=== PATIENT | female | born 1965 | race American Indian/Alaskan Native ===

== ENCOUNTER 2017-06-09 17:08 | Emergency (ER) | payer BC, OTHER ==
[2017-06-09 18:16] VITALS: BP 168/93
[2017-06-09] MEDS ORDERED: TYLENOL ONE (18:36)
[2017-06-09] MEDS ORDERED: TYLENOL PO ONE (18:41)
--- NOTE | 2017-06-09 21:11 | Emergency Department Report ---
Chief Complaint: Shoulder Injury Stated Complaint: SHOULDER PAIN Time Seen by Provider: 06/09/17 18:43 - HPI History of Present Illness: The patient is a 51-year-old female presents for evaluation of shoulder pain. The patient reports right shoulder pain for the past one week, mild in severity , achy in quality, exacerbated with movement of the right arm at the shoulder joint. 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 She denies blunt trauma to the shoulder, neck pain or stiffness, paresthesias, motor deficit, chest pain, dyspnea, abdominal pain, or pain elsewhere. - Exam Vital Signs: Vital Signs 06/09/17 06/09/17 18:12 18:42 Temperature 98.1 F Pulse Rate 103 H Respiratory 20 18 Rate Blood Pressure 168/93 O2 Sat by Pulse 97 Oximetry MSE screening note: Focused history and physical exam performed. Due to findings the following was ordered: ED Disposition for MSE Condition: Stable Referrals: PRIMARY CARE, [Primary Care Provider] - 3-5 Days
--- NOTE | 2017-06-09 21:26 | XRay Report ---
FINAL REPORT EXAM: XR SHOULDER 2+V RT HISTORY: Right shoulder injury TECHNIQUE: Three views right shoulder Comparison: None FINDINGS: There is mild osteopenia. There is no fracture or dislocation. Glenohumeral space is preserved. The acromion and acromioclavicular joint are unremarkable. The scapula is grossly intact. Imaged right lung apex is clear. Humeral head is within normal limits. IMPRESSION: No acute fracture or dislocation right shoulder girdle.
--- NOTE | 2017-06-09 21:59 | Emergency Department Report ---
Upper Extremity - HPI Chief Complaint: Shoulder Injury Stated Complaint: SHOULDER PAIN Time Seen by Provider: 06/09/17 18:43 Occurred When: >5 Days Mechanism: Other (lifting a patient) Severity: severe Symptoms: Yes Pain with Movement, No Deformity, No Limited Range of Movement, No Numbness, No Weakness, No Swelling, No Bruising/Ecchymosis, No Laceration or Abrasion Other History: The patient is a 51-year-old female presents for evaluation of shoulder pain. The patient reports right shoulder pain for the past one week, mild in severity, achy in quality, exacerbated with movement of the right arm at the shoulder joint. 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 She denies blunt trauma to the shoulder, neck pain or stiffness, paresthesias, motor deficit, chest pain, dyspnea, abdominal pain, or pain elsewhere. ED Review of Systems ROS: Stated complaint: SHOULDER PAIN Other details as noted in HPI Constitutional: denies: chills, fever Eyes: denies: eye pain, eye discharge, vision change ENT: denies: ear pain, throat pain Respiratory: denies: cough, shortness of breath, wheezing Cardiovascular: denies: chest pain, palpitations Endocrine: no symptoms reported Gastrointestinal: denies: abdominal pain, nausea, diarrhea Genitourinary: denies: urgency, dysuria, discharge Musculoskeletal: arthralgia (right shoulder). denies: back pain, joint swelling Skin: denies: rash, lesions Neurological: denies: headache, weakness, paresthesias Psychiatric: denies: anxiety, depression Hematological/Lymphatic: denies: easy bleeding, easy bruising ED Past Medical Hx - Past Medical History Previous Medical History?: Yes Hx Congestive Heart Failure: No Hx Diabetes: No Hx Asthma: Yes Hx COPD: No - Surgical History Past Surgical History?: Yes Additional Surgical History: x 2, Hysterectomy - Social History Smoking Status: Never Smoker Substance Use Type: Alcohol, Prescribed - Medications Home Medications: Home Medications Medication Instructions Recorded Confirmed Last Taken Type Biotin 1 tab PO DAILY 12/07/12 12/07/12 12/06/12 History Iron Fum,Ps/Folic/Bcomp,C No.9 1 tab PO DAILY 12/07/12 12/07/12 12/06/12 History [Integra Plus Capsule] Multivitamin [Multi-Vitamin Daily] 1 tab PO DAILY 12/07/12 12/07/12 12/06/12 07: 00 History Docusate Sodium [Colace] 100 mg PO BID PRN #60 capsule 12/09/12 Unknown Rx Ferrous Sulfate [Feosol 325 MG tab] 325 mg PO QDAY #30 tablet 12/09/12 Unknown Rx Oxycodone HCl/Acetaminophen 1 each PO Q6HR PRN #30 tablet 12/09/12 Unknown Rx [Percocet 10-325 mg] Ibuprofen [Motrin 800 MG tab] 800 mg PO TID PRN #30 tablet 06/09/17 Unknown Rx Upper Extremity Exam - Exam General: Vital signs noted. No distress. Alert and acting appropriately. Shoulder Exam: Yes Shoulder Tenderness, Yes Clavicle Tenderness, Yes AC Joint Tenderness, No Normal Range of Motion in Shoulder (not able to elevate straight up or abduction ), No Shoulder Deformity Arm Exam: No Arm/Humerus Tenderness, No Arm Deformity Elbow: Yes Normal Range of Motion in Elbow, No Elbow Tenderness, No Elbow Deformity Forearm: No Forearm Tenderness, No Forearm Deformity, No Pain with Pronation, No Pain with Supination Wrist: No Wrist Tenderness, No Normal ROM in Wrist, No Wrist Deformity, No Snuffbox Tenderness, No Pain with Axial Thumb Compression Hand: No Hand Tenderness, No Hand Deformity, No Digit Tenderness, No Normal ROM in Digit(s), No Digit(s) Deformity, No Tendon Dysfunction CMS Exam: Yes Normal Distal Pulses, Yes Normal Capillary Refill, Yes Normal Distal Sensation, No Broken Skin ED Course Vital Signs 06/09/17 06/09/17 18:12 18:42 Temperature 98.1 F Pulse Rate 103 H Respiratory 20 18 Rate Blood Pressure 168/93 O2 Sat by Pulse 97 Oximetry ED Medical Decision Making - Radiology Data Radiology results: report reviewed, image reviewed FINDINGS: There is mild osteopenia. There is no fracture or dislocation. Glenohumeral space is preserved. The acromion and acromioclavicular joint are unremarkable. The scapula is grossly intact. Imaged right lung apex is clear. Humeral head is within normal limits. IMPRESSION: No acute fracture or dislocation right shoulder girdle. - Medical Decision Making Patient has been evaluated at this provider as well as Dr. Garvey. Patient was given Tylenol 650 mg, x-ray of the right shoulder which was normal. Patient appears to have strained her right shoulder while lifting a patient. Discussed the patient she can take ibuprofen and rest, ice. I discussed with patient that we will refer her to orthopedics so they can evaluate her for a possible rotator cuff. Patient verbalized understanding. Critical care attestation.: If time is entered above; I have spent that time in minutes in the direct care of this critically ill patient, excluding procedure time. ED Disposition Clinical Impression: Injury of right shoulder Qualifiers: Encounter type: initial encounter Qualified Code(s): S49.91XA - Unspecified injury of right shoulder and upper arm, initial encounter Disposition: TO HOME OR SELFCARE Is pt being admited?: No Does the pt Need Aspirin: No Condition: Stable Instructions: Rotator Cuff Injury (ED) Additional Instructions: Please take ibuprofen as prescribed. It is very importantly to follow up with orthopedics for further evaluation if pain persists or gets worse. Prescriptions: Ibuprofen [Motrin 800 MG tab] 800 mg PO TID PRN #30 tablet PRN Reason: Pain Referrals: PRIMARY CARE, [Primary Care Provider] - 3-5 Days HALIMA ARGUETA MD [Staff Physician] - 3-5 Days IGNACIO GUERRA MD [Staff Physician] - 3-5 Days Forms: Work/School Release Form(ED)
== END 2017-06-09 22:07 | disposition home or self-care (01) ==
LOC: ED 17:08
DX: S49.91XA Unspecified injury of right shoulder and upper arm, initial encounter (principal); X58.XXXA Exposure to other specified factors, initial encounter; Y93.89 Activity, other specified; Y92.89 Other specified places as the place of occurrence of the external cause; Y99.8 Other external cause status
CPT/HCPCS: 99283

== ENCOUNTER 2017-06-21 11:52 | Outpatient (CLI) | payer OTHER ==
[2017-06-21 14:03] LABS: Creatinine,Urine 733.8 mg/dL (0.1-20.0); Microalbumin/Creatinine Ratio 14.3 ug/mg
[2017-06-21 14:08] LABS: Alanine Aminotransferase 33 units/L (7-56); Albumin 3.8 g/dL (3.9-5); BUN/Creatinine Ratio 27; Blood Urea Nitrogen 19 mg/dL (7-17); Calcium 10.2 mg/dL (8.4-10.2); Chol/HDL Ratio 3.18 %; HDL Cholesterol 64 mg/dL (40-59); Hemolysis Index 2
[2017-06-21 14:22] LABS: LDL Cholesterol,Direct 120 mg/dL (50-130)
== END 2017-06-21 11:53 | disposition home or self-care (01) ==
LOC: MRI 11:52
PROVIDERS: ATTEND Orthopaedic Surgery
DX: Z00.01 Encounter for general adult medical examination with abnormal findings (principal); E11.65 Type 2 diabetes mellitus with hyperglycemia; E78.1 Pure hyperglyceridemia; E55.9 Vitamin D deficiency, unspecified; I10 Essential (primary) hypertension; M25.511 Pain in right shoulder
CPT/HCPCS: 36415; 80053; 80061; 82043; 82306; 83036